=== PATIENT | male | born 1955 | race Caucasian/White ===

== ENCOUNTER → 2021-04-17 13:16 | Outpatient (CLI) | payer MEDICARE, OTHER, SELFPAY ==
--- NOTE | 2021-04-17 | DI.ECHO.S_ITS ---
[facility] +---------+ : : [address] : [address] : : : : [id number] : : : : Phone: [phone]+ Echocardiogram Report + + :Name: PATRICIA PALACIOS Study Date: 04/17/2021 Height: 71 in : :[facility] ReadingLocation: Weight: 235 lb : : Gender: Male BSA: 2.3 m2 : :: 1955 Age: 66 yrs BP: 163/80 mmHg: :Reason For Study: Murmur : :Ordering Physician: MU, : :NANCY Parker Performed By: Elia Otto : :Referring: NANCY DOBBINS : + + Interpretation Summary 1) Normal left ventricular thickness, size, wall motion, and systolic function (EF 55-60%). 2) Normal right ventricular size and function. 3) Aortic valve sclerosis noted but no significant valvular stenosis or regurgitation present. 4) Hypertension present during the study (BP 163/80mmHg). 5) No prior Echo available for comparison. Procedure: A two-dimensional transthoracic echocardiogram with color flow and Doppler was performed. The study quality was technically adequate. There is no prior echocardiogram noted for this patient. The patient was in sinus rhythm with heart rates between 49-63 bpm during the exam. Left Ventricle: The left ventricle is normal in size and wall thickness. Left ventricular systolic function is normal. The ejection fraction is estimated to be 55-60%. There are no focal wall motion abnormalities. Diastolic parameters suggest probable normal left ventricular diastolic function and normal filling pressures. Right Ventricle: The right ventricle is normal in size and function. Atria: Both atria are normal in size. There is no Doppler evidence for an interatrial shunt. Mitral Valve: The mitral valve is normal in structure and function. There is trace mitral regurgitation. Aortic Valve: There is mild aortic valve sclerosis. There is no aortic valve stenosis. There is mild aortic regurgitation. Tricuspid Valve: The tricuspid valve is normal in structure and function. There is trace tricuspid regurgitation. Pulmonary artery pressures cannot be estimated because of the lack of a measurable TR jet velocity but the IVC suggests a CVP of around 3 mmHg. Pulmonic Valve: The pulmonic valve is normal in structure and function. There is trace pulmonic regurgitation. Great Vessels: The aortic root is normal size. The ascending aorta is moderately enlarged. The IVC is of normal diameter and collapses greater than 50% with a sniff. This suggests a low right atrial pressure of 3 mm Hg. Pericardium/ Pleura There is no pericardial effusion. There is no pleural effusion. MMode/2D Measurements & Calculations LVIDd: 5.4 cm LVOT diam: 2.1 cm LVIDs: 3.5 cm Ao root diam: 3.4 cm FS: 34.8 % asc Aorta Diam: 4.2 cm IVSd: 0.96 cm LVPWd: 1.0 cm LV rivers. diameter/BSA (cm/m^2): 2.4 LV sys. diameter/BSA (cm/m^2): 1.6 LA A2 area: 20.8 cm2 RA long axis: 6.1 cm LA A4 area: 26.1 cm2 RA area: 17.1 cm2 LA length (vol): 6.5 cm RA vol: 40.3 ml LA vol: 70.9 ml RA : 17.8 ml/m2 LA vol index: 31.4 ml/m2 TAPSE: 3.2 cm Doppler Measurements & Calculations Ao V2 max: 181.2 cm/sec LVOT Max Elmer: 108.3 cm/sec Ao V2 mean: 123.2 cm/sec LV V1 max P.7 mmHg Ao max P.1 mmHg LV V1 VTI: 26.7 cm Ao mean P.9 mmHg JEISON(I,D): 2.2 cm2 Ao V2 VTI: 41.3 cm JEISON(V,D): 2.0 cm2 sev ratio: 0.65 JEISON indexed to BSA (cm^2/m^2): 0.98 MV E max elmer: 94.1 cm/sec PA pr(Accel): 44.7 mmHg MV A max elmer: 107.6 cm/sec MV E/A: 0.87 Med Peak E' Elmer: 9.0 cm/sec E/E' med: 10.4 Lat Peak E' Elmer: 10.3 cm/sec E/E' lat: 9.2 E/e' average: 9.8 MV dec time: 0.25 sec SV(LVOT): 91.2 ml Reading Physician:02:28 PM
== END ==
PROVIDERS: Referring Provider Family Medicine; Visit Provider Family Medicine
DX: I35.1 Nonrheumatic aortic (valve) insufficiency (principal); R01.0 Benign and innocent cardiac murmurs; I77.89 Other specified disorders of arteries and arterioles
CPT/HCPCS: 93306

== ENCOUNTER → 2021-06-09 11:59 | Outpatient (CLI) | payer MEDICARE, OTHER, SELFPAY | PROVIDERS: PCP Family Medicine; Referring Provider Orthopaedic Surgery Foot and Ankle Surgery; Visit Provider Orthopaedic Surgery Foot and Ankle Surgery | DX: S76.312A Strain of muscle, fascia and tendon of the posterior muscle group at thigh level, left thigh, initial encounter (principal); Z53.20 Procedure and treatment not carried out because of patient's decision for unspecified reasons ==

== ENCOUNTER 2021-12-02 09:53 | Day surgery (SDC) | payer MEDICARE, OTHER, SELFPAY ==
[2021-11-30 09:41] VITALS: BMI 35.1
[2021-12-02] VITALS (7 sets, daily range): BP systolic 107–178; BP diastolic 50–84; PULSE 55–68; RESP 14–16; TEMP 35.9–36.2; O2SAT 95–99; BMI 35.1
[2021-12-02] MEDS: LACTATED RINGERS 1,000 ML 42 ML IV ×2 (10:21→14:59)
[2021-12-02] MEDS: ACETAMINOPHEN 325 MG TABLET 975 MG PO (10:22)
--- NOTE | 2021-12-02 12:54 | PM.PREOP ---
Pre-operative Note COVID-19 COVID-19 status: Negative Result date/Date tested (Pos, Neg/Pending): 12/01/21 Criteria for continued procedure: Expected advancement of disease process, Possibility delay results in more complex future surgery or treatment, Increased loss of function, Continuing or worsening of significant or severe pain, Deterioration of the patient's condition or overall health and Delay expected to result in less-positive ultimate med/surg outcome Interval Note History & Physical reviewed/Exam performed by Physician: Yes Changes to H&P: No
--- NOTE | 2021-12-02 13:42 | SUR.PREOP ---
Neg covid result on REVENTIVE barbara. Sample Obtained 11/30 and negative result witnessed by 2 RN's - Adeline HYATT and Yisel HYATT
--- NOTE | 2021-12-02 13:44 | PM.HP.1 ---
History of Present Illness History of Present Illness Date Patient Seen: 12/02/21 Time Patient Seen: 12:45 Date of Onset of Symptoms: 04/03/21 Chief complaint: LEFT LUMBAR MICRODISCECTOMY Narrative: Mr. Monte is a 66 yo M with hx of chronic left leg radiculopathy. Patient failed over 3 months of conservative care. Patient has elected to proceed with surgery treatment. Patient History Medical History Disc herniation HTN (hypertension) Radiculopathy, lumbar region Spinal stenosis Surgical History S/P epidural steroid injection (09/28/21) Family & Social History Social History: household members spouse Tobacco & Substance use: Smoking Status Former smoker alcohol intake current alcohol intake frequency 3 or more drinks per day Substance Use Type does not use Meds Home Medications and Allergies Home Medications Medication Instructions Recorded Confirmed Type amlodipine 10 mg tablet 10 mg PO DAILY 11/30/21 12/02/21 History furosemide 20 mg tablet 20 mg PO DAILY 11/30/21 12/02/21 History lisinopril 20 mg tablet 20 mg PO DAILY 11/30/21 12/02/21 History metoprolol succinate 50 mg 50 mg PO DAILY 11/30/21 12/02/21 History tablet,extended release 24 hr Allergies Allergy/AdvReac Type Severity Reaction Status Date / Time No Known Drug Allergies Allergy Verified 12/02/21 10:16 Review of Systems Review of Systems ROS: Yes All systems reviewed with the patient and are negative except as otherwise documented Exam Vital Signs (past 8 hours): - 12/02/21 10:25 Temperature 96.7 F L Pulse Rate 62 Respiratory Rate 16 Blood Pressure 178/84 H Pulse Oximetry 99 Oxygen Delivery Method Room Air Neuro Other: + Straight leg raise to LLE, sensibility decreased to L S1 dermatome, motor strength 4/5 in left gastroc. DTR 1+ in L achilles. Assessment & Plan Assessment & Plan narrative: Patient has L5-S1 paramedian disc herniation with left S1 radiculopathy. I discussed with patient risks and benefits. Risks for surgery include but limited to bleeding, infection, nerve/dura injury, need for additional procedure, persisting pain. Patient understands and would like to proceed with surgery. I scheduled him for L5-S1 left microdiscectomy. Time Spent With Patient Critical Care time: I spent a total of [] minutes of critical care time on this patient's care today; this time is exclusive of procedural time.
--- NOTE | 2021-12-02 14:24 | SUR.OPER ---
Prone on spine table, head in foam head support, padded chest and pelvic supports, gel pad at knees, lower legs supported by 3x pillows; nipples, genitalia and toes free of pressure, arms secured on foam padded arm boards at <90 degrees abduction. Tape over blanket at thigh secured to table.
[2021-12-02] MEDS: CEFAZOLIN 2 GM/20 ML SYRINGE IV (14:29)
[2021-12-02] MEDS: BUPIVACAINE 0.25% (PF) 60 ML, EPINEPHrine 0.3 MG INJ (14:29)
[2021-12-02] MEDS: methylPREDNISolone 125 MG/2 ML VIAL 40 MG INJ (14:30)
--- NOTE | 2021-12-02 14:41 | DI.RAD.S_ITS ---
PROCEDURE: XR LUMBAR SPINE 2-3V INDICATIONS: L5-S1 MICRODISCECTOMY TECHNIQUE: 2 operative views of the lumbar spine were acquired. COMPARISON: None. FINDINGS: 2 operative localization images are provided, localizing L5-S1 posteriorly. IMPRESSION: Operative imaging utilized during lumbar surgery. Dictated by: Yoshi Estes M.D. on 12/02/2021 at 15:50 Approved by: Yoshi Estes M.D. on 12/02/2021 at 15:51
--- NOTE | 2021-12-02 15:16 | PM.OP.1 ---
Operative Date/Time/Diagnoses Date of procedure: 12/02/21 Time of procedure: 13:45 Pre-op diagnosis: 1. L5-S1 disc herniation 2. Lumbar radiculopathy Post-op diagnosis: same Procedure & Clinicians Procedure: 1. L5-S1 left microdiscectomy 2. Utilization of microsurgical technique and operating microscope Same procedure as scheduled: Yes Indications: Patient has been having chronic back pain and worsening lumbar radiculopathy. Patient failed multiple conservative management with worsening pain weakness and numbness in her lower extremity. Patient has been having difficulty performing activity of daily living. After discussing risks benefits of treatment options, patient elected proceed with surgery. Surgeon: Gail Chaudhry Fire Chief'S Aide: Cori Benito Click Yes if Unassisted: No Anesthesia Type: General Operative Notes Closure Type: primary Specimen(s): none sent Estimated Blood Loss (mL): 5 Blood products transfused: none Procedure in detail: Patient was seen in the preoperative area. Risks and benefits of the surgery was discussed with the patient. Informed consent was obtained from the patient and placed in the chart. Surgical site was marked. Patient was taken to the operative room. General anesthesia was administered. Prophylactic antibiotic was given to the patient less than 30 min before the incision was made. Patient was placed into a prone position on the Gustavo table. Patient's back was then prepped and draped in the sterile fashion. Time-out was performed at this time. Using AP and lateral C-arm imaging the interval between L5-S1 was identified and marked on patient's back. A 1 inch incision 1 in from midline was made on the left side. The fascia was incised in line with skin incision. Globus MARS retractors was placed inside the incision and docked onto the L5 lamina. Using microsurgical technique and operating microscope, a L5 laminotomy was performed using a Kerrison rongeur. Liagamentum flavum was resected at the site of the laminotomy. The disc space at L5-S1 was identified. Microdiscectomy was performed by incising the annulus with #11 blade. Microcurettes and pituitary was used to removed herniated disc fragments of disc from the epidural space. 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 Tisseel and DuraGen was used to patch the dural defect. Once the patch was performed there was minimal CSF leakage at the end of the procedure. After the microdiskectomy was completed, the area medial lateral superior and inferior to the area of the microdiskectomy was inspected and explored using a micro curette. No other impinging structure was identified. The wound was then irrigated with sterile normal saline. 40 mg Depo-Medrol was placed into the epidural space. The deep fascia was closed with 1-0 Vicryl. The subcutaneous tissue was closed with 2-0 Vicryl. The skin was closed with 4-0 Monocryl. Dermabond was applied to the skin. Patient tolerated the procedure well. There were no complications. Patient was transferred recovery room in stable condition. Plan will be keeping the patient's head of bed flat and on bed rest until tomorrow morning due to his CSF leakage and dural defect. I discussed the plan and recommendation with patient's . She would like to take the patient back to [place] where they live. She understands the need to keep her 's head of bed flat until tomorrow morning. She states they have articulating bed and be fairly easy to raise the head of bed as needed slowly. Patient will be discharged to home with limited activity on bed rest until until tomorrow 7:00 a.m. Patient can then gradually increase his head of bed up 30? every 30 minutes as tolerated. Complications: none Post-operative Condition: stable Disposition: PACU Plan for aftercare: Discharge to home
--- NOTE | 2021-12-02 16:47 | SUR.PHASEII ---
Pt and family aware of need to lay flat until 7am tomorrow as much as possible. On dc instructions as well.
== END 2021-12-02 16:36 | disposition home or self-care (01) ==
PROVIDERS: PCP Family Medicine; Referring Provider Orthopaedic Surgery Orthopaedic Surgery of the Spine; Visit Provider Orthopaedic Surgery Orthopaedic Surgery of the Spine
PROC: (CPT 63030; principal; 2021-12-02 12:15)
DX: M51.26 Other intervertebral disc displacement, lumbar region (principal); M48.061 Spinal stenosis, lumbar region without neurogenic claudication; M54.16 Radiculopathy, lumbar region; I10 Essential (primary) hypertension
CPT/HCPCS: 63030; 72100; 76000; 82962; J0171; J0330; J0690; J2250; J2704; J2930; J3010

== ENCOUNTER 2023-10-24 14:15 | Outpatient (RCR) | payer MEDICARE, OTHER, SELFPAY | END 2023-10-24 16:00 | LOC: CAR 14:15 | PROVIDERS: PCP Family Medicine; Referring Provider Student in an Organized Health Care Education/Training Program; Visit Provider Student in an Organized Health Care Education/Training Program | DX: Z95.5 Presence of coronary angioplasty implant and graft (principal); I25.10 Atherosclerotic heart disease of native coronary artery without angina pectoris; I48.0 Paroxysmal atrial fibrillation; I49.5 Sick sinus syndrome | CPT/HCPCS: 93798 ==